=== PATIENT | female | born 1970 | race Caucasian/White ===

== ENCOUNTER 2017-03-24 14:11 | Emergency (ER) | payer BC ==
[2017-03-24 14:19] VITALS: BP 141/92
[2017-03-24] MEDS ORDERED: methylPREDNISolone 125 MG* 2 ML VIAL IM ONE (14:34)
[2017-03-24] MEDS ORDERED: Famotidine TAB* 20 MG PO ONE (14:57)
[2017-03-24] MEDS ORDERED: diPHENhydraMINE PO* 50 MG PO ONE (14:57)
--- NOTE | 2017-03-24 15:11 | UC ---
Skin Complaint HPI - HPI Summary HPI Summary: LEFT HAND STUNG BY BEE YESTERDAY. SWELLING CONTINUES. NO SHORTNESS OF BREATH. NO THROAT TIGHTNESS OR LIP SWELLING. NO JEWELERY COMPRIMISE. - History of Current Complaint Chief Complaint: UCSkin Time Seen by Provider: 03/24/17 14:24 Stated Complaint: BEE STING Hx Obtained From: Patient Hx Last Menstrual Period: 5 yrs ago Onset/Duration: Sudden Onset, Lasting Days, Still Present Skin Exposure Onset/Duration: Days Ago Onset Severity: Mild Current Severity: Mild Character: Swelling, Pruritus, Redness, Raised Aggravating: Touch Alleviating: OTC Meds, Antihistamines Associated Signs & Symptoms: Positive: Negative Related History: Insect Bite/Sting, Possible Reaction to: Insect - Allergy/Home Medications Allergies/Adverse Reactions: Allergies Allergy/AdvReac Type Severity Reaction Status Date / Time No Known Allergies Allergy Verified 03/24/17 14:19 Home Medications: Home Medications FLUoxetine CAP* [Prozac CAP*] 03/24/17 [History Confirmed 03/24/17] Review of Systems Constitutional: Negative Skin: Rash - LEFT HAND Eyes: Negative ENT: Negative Respiratory: Negative Cardiovascular: Negative Gastrointestinal: Negative Genitourinary: Negative Motor: Negative Neurovascular: Negative Musculoskeletal: Negative Neurological: Negative Psychological: Negative All Other Systems Reviewed And Are Negative: Yes PMH/Surg Hx/FS Hx/Imm Hx Previously Healthy: Yes - Surgical History Surgical History: Yes Surgery Procedure, Year, and Place: APPENDIX, GALLBLADDER, 2 C-SECTIONS, R knee arthroscopy and cartilage shave - Family History Known Family History: Positive: Cardiac Disease, Diabetes, Renal Disease, Other - arthritis Negative: Blood Disorder - Social History Occupation: Employed Full-time Lives: With Family Alcohol Use: Rare Alcohol Amount: 1 WINE A FEW TIMES A YEAR Substance Use Type: None Smoking Status (MU): Never Smoked Tobacco Have You Smoked in the Last Year: No - Immunization History Most Recent Tetanus Shot: less then 5 yrs Physical Exam Triage Information Reviewed: Yes Appearance: Well-Appearing, No Pain Distress, Well-Nourished Vital Signs: Initial Vital Signs Temp 99.3 F 03/24/17 14:15 Pulse 87 03/24/17 14:15 Resp 12 03/24/17 14:15 BP 141/92 03/24/17 14:15 Pulse Ox 97 03/24/17 14:15 Vital Signs Reviewed: Yes Eye Exam: Normal ENT Exam: Normal ENT: Positive: Normal ENT inspection, Hearing grossly normal, TMs normal Dental Exam: Normal Neck exam: Normal Neck: Positive: Supple, Nontender Respiratory Exam: Normal Respiratory: Positive: Chest non-tender, Lungs clear, Normal breath sounds, No respiratory distress, No accessory muscle use Cardiovascular Exam: Normal Cardiovascular: Positive: RRR, No Murmur, Pulses Normal Abdominal Exam: Normal Musculoskeletal Exam: Normal Musculoskeletal: Positive: Strength Intact, ROM Intact Neurological Exam: Normal Psychological Exam: Normal Skin Exam: Normal Course/Dx - Differential Diagnoses - Skin Complaint Differential Diagnoses: Allergic Reaction, Anaphylaxis, Angioedema, Cellulitis, Local Allergic Reaction, MRSA, Tinea, Varicella Zoster - Diagnoses Provider Diagnoses: LEFT HAND BEE STING Discharge - Discharge Plan Condition: Stable Disposition: HOME Patient Education Materials: Insect Bite or Sting (ED) Referrals: Harjeet Gupta MD [Medical Doctor] - Additional Instructions: BENADRYL 50mg PO TWO TIMES DAILY FOR FIVE DAYS. PEPCID 40 mg PO TWO TIMES DAILY FOR FIVE DAYS.
== END 2017-03-24 15:05 | disposition home or self-care (01) ==
LOC: UCEAST 14:11
DX: T63.441A Toxic effect of venom of bees, accidental (unintentional), initial encounter (principal); Y92.9 Unspecified place or not applicable
CPT/HCPCS: 96372; 99212; A9270-GY; G0463; J2930

== ENCOUNTER 2017-09-18 10:21 | Emergency (ER) | payer BC ==
--- NOTE | 2017-09-18 11:40 | RAD ---
INDICATION: Sudden onset LEFT elbow pain without proceeding injury. COMPARISON: No relevant prior exams available on the [facility] for comparison. TECHNIQUE: AP, lateral, and oblique views LEFT elbow. REPORT: Normal articular alignment. Negative for joint effusion or fracture. Large enthesophyte at the sublime tubercle of the ulna corresponding with the insertion of the anterior band of the ulnar collateral ligament favoring chronic ligament pathology or sequela of prior injury. Minimal humeral ulnar joint osteophytosis without significant joint space narrowing. Unremarkable soft tissue contours. IMPRESSION: 1. Large enthesophyte at the sublime tubercle of the ulna corresponding with the insertion of the anterior band of the ulnar collateral ligament favoring chronic ligament pathology or sequela of prior injury. 2. Mild osteoarthritis.
[2017-09-18 12:24] VITALS: BP 126/83
--- NOTE | 2017-09-19 11:39 | ED ---
Kel Shin Jennifer, scribed for Levi Ford MD on 09/18/17 at 1043 . Upper Extremity Pain - HPI Summary HPI Summary: The patient is a 46 year old female who presents with elbow pain in the left arm that began this morning at 07:10. The pain radiates from the elbow down the arm, and there is tingling in the left five fingers. It is described as a pulsating pain, but when she moves it a certain way, it becomes an excruciating pain. She denies any injury to her arm and states that the pain spontaneously occurred as she was getting ready. The patient denies weakness and neck pain. - History of Current Complaint Chief Complaint: EDExtremityUpper Stated Complaint: ELBOW PAIN, LEFT Hx Obtained From: Patient Hx Last Menstrual Period: 5 yrs ago Onset/Duration: Started Hours Ago - This morning at 07:10, Still Present Timing: Constant Severity Initially: Mild Severity Currently: Mild Pain Location: Elbow Character: Throbbing Aggravating Factor(s): Nothing Alleviating Factor(s): Nothing Associated Signs & Symptoms: Positive: Numbness/Tingling - left fingers, Other. Negative: Weakness, Neck Pain - Allergies/Home Medications Allergies/Adverse Reactions: Allergies Allergy/AdvReac Type Severity Reaction Status Date / Time No Known Allergies Allergy Verified 03/24/17 14:19 PMH/Surg Hx/FS Hx/Imm Hx Endocrine/Hematology History: Reports: Hx Diabetes - GESTATIONAL DM WITH PREGNANCIES Denies: Hx Thyroid Disease Cardiovascular History: Reports: Hx Hypertension - AFTER CHILDBIRTH, FOR 3 MONTHS, NONE SINCE - PATIENT STATES NORMAL Denies: Hx Pacemaker/ICD Respiratory History: Reports: Other Respiratory Problems/Disorders - RECEIVED ALLERGY INJECTIONS IN THE PAST Denies: Hx Asthma, Hx Chronic Obstructive Pulmonary Disease (COPD) GI History: Reports: Hx Gastroesophageal Reflux Disease - HX OF ACID REFLUX - NONE PRESENTLY, Hx Irritable Bowel, Hx Jaundice Denies: Hx Ulcer History: Reports: Other Problems/Disorders - HX OF UTI - NONE NOW Musculoskeletal History: Reports: Hx Arthritis - BILATERAL KNEES Sensory History: Reports: Hx Contacts or Glasses - GLASSES Denies: Hx Hearing Aid Opthamlomology History: Reports: Hx Contacts or Glasses - GLASSES Neurological History: Reports: Hx Migraine - HX OF IN THE PAST, NONE RECENTLY Psychiatric History: Reports: Hx Depression - ON MED Denies: Hx Panic Disorder - Surgical History Surgery Procedure, Year, and Place: APPENDIX, GALLBLADDER, 2 C-SECTIONS, R knee arthroscopy and cartilage shave Hx Anesthesia Reactions: No Infectious Disease History: No Infectious Disease History: Denies: Hx Clostridium Difficile, Hx Hepatitis, Hx Human Immunodeficiency Virus (HIV), Hx of Known/Suspected MRSA, Hx Shingles, Hx Tuberculosis, History Other Infectious Disease, Traveled Outside the [place] in Last 30 Days - Family History Known Family History: Positive: Cardiac Disease, Diabetes, Renal Disease, Other - arthritis Negative: Blood Disorder - Social History Alcohol Use: Rare Alcohol Amount: 1 WINE A FEW TIMES A YEAR Substance Use Type: Reports: None Smoking Status (MU): Never Smoked Tobacco Have You Smoked in the Last Year: No Review of Systems Positive: Myalgia - Elbow pain Neurological: Negative - Neck pain, Other Positive: Numbness - Tingling of left fingers. Negative: Weakness All Other Systems Reviewed And Are Negative: Yes Physical Exam - Summary Physical Exam Summary: Appearance: Well-appearing, Well-nourished Skin: Warm, Dry. Eczema on bilateral hands. Eyes: Normal, PERRL, EOMI, sclera anicteric ENT: Normal Neck: Supple, nontender Respiratory: Clear to auscultation Cardiovascular: S1, S2, no murmur, no rub, no gallop Abdomen: Soft, nontender, no organomegaly Bowel sounds: Present Musculoskeletal: Normal, Strength/ROM Intact, no edema, pulses symmetrical. Weakness of thumb abductors on left side. Tender over medial epicondyle on the left side. Extremities: Drew test showed presence of ulnar and radial artery blood flow. Neurological: Normal, A&Ox3, cranial nerves II-XII WNL, follows commands, gait not tested, sensation intact to pin and light touch. Deep tendon reflexes normal. Sensation in ulnar, median, and radial hand equal. No neck pain with motion. Psychiatric: affect normal, behavior appropriate, dressed appropriately, judgment intact Triage Information Reviewed: Yes Vital Signs On Initial Exam: Initial Vitals Temp Pulse Resp BP Pulse Ox 99.2 F 85 17 138/79 96 09/18/17 10:28 09/18/17 10:28 09/18/17 10:28 09/18/17 10:28 09/18/17 10:28 Vital Signs Reviewed: Yes Diagnostics - Vital Signs Vital Signs Temp Pulse Resp BP Pulse Ox 09/18/17 10:28 99.2 F 85 17 138/79 96 - Laboratory Lab Statement: Any lab studies that have been ordered have been reviewed, and results considered in the medical decision making process. - Radiology Elbow XR Xray Interpretation: Positive (See Comments) - 1. Large enthesophyte at the sublime tubercle of the ulna corresponding with the insertion of the anterior band of the ulnar collateral ligament favoring chronic ligament pathology or sequela of prior injury. 2. Mild osteoarthritis. Dr. Ford has reviewed this report. Radiology Interpretation Completed By: Radiologist Course/Dx - Course Assessment/Plan: Elbow X-ray showed 1. Large enthesophyte at the sublime tubercle of the ulna corresponding with the insertion of the anterior band of the ulnar collateral ligament favoring chronic ligament pathology or sequela of prior injury. 2. Mild osteoarthritis. The patient is diagnosed with ulnar tendinitis with ulnar neuropathy. The patient is instructed to follow up with orthopedics. - Diagnoses Provider Diagnoses: ulnar tendinitis with ulnar neuropathy Discharge - Discharge Plan Condition: Stable Disposition: HOME Referrals: Marlon Francis MD [Medical Doctor] - 3 Days Additional Instructions: Follow up with Dr. Francis, orthopedics, in three days. RETURN TO THE EMERGENCY DEPARTMENT FOR CHANGING OR WORSENING SYMPTOMS. The documentation as recorded by the Kel epps Jennifer accurately reflects the service I personally performed and the decisions made by , Levi Ford MD.
== END 2017-09-18 12:23 | disposition home or self-care (01) ==
LOC: ED 10:21
DX: J06.9 Acute upper respiratory infection, unspecified (principal)
CPT/HCPCS: 99282

== ENCOUNTER 2018-05-25 17:17 | Emergency (ER) | payer BC ==
[2018-05-25] MEDS ORDERED: Ibuprofen TAB* 600 MG PO ONE (19:04)
--- NOTE | 2018-05-25 19:07 | UC ---
Throat Pain/Nasal Danis HPI - HPI Summary HPI Summary: 47-year-old woman comes in with a chief complaint of sore throat fever bodyaches. Her symptoms came on suddenly 3 days ago. Initially is quite as bad sore throat. Been having chills cough and wheezing. She also has rhinorrhea. She's not smoker. Ibuprofen helped some with the pain. - History of Current Complaint Chief Complaint: UCRespiratory Stated Complaint: URI Time Seen by Provider: 05/25/18 18:57 Hx Last Menstrual Period: has mirena Pain Intensity: 4 - Allergies/Home Medications Allergies/Adverse Reactions: Allergies Allergy/AdvReac Type Severity Reaction Status Date / Time No Known Allergies Allergy Verified 05/25/18 17:35 PMH/Surg Hx/FS Hx/Imm Hx Respiratory History: Asthma - Surgical History Surgical History: Yes Surgery Procedure, Year, and Place: APPENDIX, GALLBLADDER, 2 C-SECTIONS, L t AND Rt knee arthroscopy and cartilage shave - Family History Known Family History: Positive: Cardiac Disease, Diabetes, Renal Disease, Other - arthritis Negative: Blood Disorder - Social History Alcohol Use: Rare Alcohol Amount: 1 WINE A FEW TIMES A YEAR Substance Use Type: None Smoking Status (MU): Never Smoked Tobacco Have You Smoked in the Last Year: No - Immunization History Most Recent Tetanus Shot: less then 5 yrs Review of Systems Constitutional: Fever, Chills Skin: Negative Eyes: Negative ENT: Sore Throat, Nasal Discharge, Sinus Congestion Respiratory: Cough Cardiovascular: Negative Gastrointestinal: Negative Motor: Negative Neurovascular: Negative Musculoskeletal: Negative Neurological: Negative Psychological: Negative Is Patient Immunocompromised?: No All Other Systems Reviewed And Are Negative: Yes Physical Exam Triage Information Reviewed: Yes Appearance: No Pain Distress, Well-Nourished, Ill-Appearing - MILD Vital Signs: Initial Vital Signs Temp 101.5 F 05/25/18 17:31 Pulse 95 05/25/18 17:31 Resp 18 05/25/18 17:31 BP 147/92 05/25/18 17:31 Pulse Ox 99 05/25/18 17:31 Vital Signs Reviewed: Yes Eye Exam: Normal Eyes: Positive: Conjunctiva Clear ENT: Positive: Pharyngeal erythema, Nasal congestion, Nasal drainage, TMs normal Neck exam: Normal Neck: Positive: Supple Respiratory Exam: Normal Respiratory: Positive: Lungs clear, Normal breath sounds, No respiratory distress Cardiovascular: Positive: RRR Musculoskeletal Exam: Normal Musculoskeletal: Positive: Strength Intact, ROM Intact Neurological Exam: Normal Neurological: Positive: Alert, Muscle Tone Normal Psychological Exam: Normal Psychological: Positive: Age Appropriate Behavior Skin Exam: Normal Throat Pain/Nasal Course/Dx - Course Course Of Treatment: DISCUSSED VIRAL VERSES BACTERIAL INFECTION AND THE ROLE OF ANTIBIOTICS. THE PATIENT WISHES TO BE ON ANTIBIOTICS AT THIS TIME. - Differential Dx/Diagnosis Provider Diagnoses: BRONCHITIS. ASTHMA Discharge - Sign-Out/Discharge Documenting (check all that apply): Patient Departure All imaging exams completed and their final reports reviewed: No Studies - Discharge Plan Condition: Stable Disposition: HOME Prescriptions: Albuterol HFA INHALER* [Ventolin HFA Inhaler*] 2 puff INH Q4H PRN #1 mdi PRN Reason: Wheezing Azithromyxin ALIA (NF) [Z-Alia (Zithromax) 250 mg tabs #6] 2 tab PO .TODAY, THEN 1 DAILY #6 tab predniSONE TAB* [Deltasone 20 MG TAB*] 40 mg PO DAILY #10 tab Patient Education Materials: Acute Bronchitis (ED), Asthma (ED) Forms: *Work Release Referrals: Bettina Lee NP [Primary Care Provider] - Additional Instructions: FOLLOW UP WITH YOUR DOCTOR IF NOT COMPLETELY IMPROVED. GET RECHECKED FOR ANY WORSENING OF YOUR CONDITION OR QUESTIONS OR CONCERNS. - Billing Disposition and Condition Condition: STABLE Disposition: Home
[2018-05-25 19:54] VITALS: BP 138/86
== END 2018-05-25 19:54 | disposition home or self-care (01) ==
LOC: UCEAST 17:17
DX: J45.909 Unspecified asthma, uncomplicated (principal)
CPT/HCPCS: 87651; 99212; A9270-GY; G0463

== ENCOUNTER 2024-02-17 09:45 | Observation (INO) ==
[~2024-02-17 09:45] MED LIST: Naloxone 0.4 mg VIAL 0.4 mg/ml 1 ml VIAL IV PRN; Prochlorperazine 5 mg/ml 2 ml VIAL (10 mg) IV PRN
[2024-02-17 10:51] LABS: Rapid COVID-19 Molecular Undetected (Undetected)
[2024-02-17] MEDS ORDERED: Tranexamic Acid 1 GM/100ML BAG 2,000 MG/200 ML BAG IV ONE (10:57)
[2024-02-17] MEDS ORDERED: ceFAZolin 2 GM in NS PREMIX 2 GM/100 ML BAG IVPB ONE (10:58)
[2024-02-17] MEDS: Lactated Ringers 1000 ml BAG 1,000 ML IV SCH ×2 (11:18→20:15)
[2024-02-17] MEDS: Buffered Lidocaine 1% SYRIN 1 ml INTRADERM ONE (11:18)
[2024-02-17] MEDS ORDERED: Midazolam 2 mg/2 ml VIAL 1 mg/ml 2 ml VIAL (2 mg) ONE ×2 (12:22→12:50)
[2024-02-17] MEDS ORDERED: ROPIVACAINE 5 MG/ML 30 ML BTL (0.5%) ONE (12:22)
[2024-02-17] MEDS ORDERED: Propofol 10 MG/ML 20 ML BTL ONE ×2 (14:32→15:24)
[2024-02-17] MEDS ORDERED: Ondansetron ODT 4 mg TAB 4 MG TAB PO PRN (16:14)
[2024-02-17] MEDS ORDERED: Calcium Carb (TUMS) 500 mg CHEW TAB PO PRN (16:14)
[2024-02-17] MEDS ORDERED: Ondansetron 4 mg VIAL 2 MG/ML 2 ml VIAL IV PRN (16:14)
[2024-02-17] MEDS ORDERED: Lactulose 30 ml UDC PO PRN (16:14)
[2024-02-17] MEDS ORDERED: Magnesium Hydroxide LIQ 30 ML UDC PO PRN (16:14)
[2024-02-17] MEDS ORDERED: fentaNYL 100 mcg/2 ml 50 MCG/ML VIAL ONE ×3 (16:14→17:24)
[2024-02-17] MEDS: fentaNYL 100 mcg/2 ml 50 MCG/ML VIAL IV PRN (16:15)
[2024-02-17] MEDS ORDERED: HYDROmorphone 1 MG/1 ML SYRINGE ONE (17:55)
[2024-02-17] MEDS: HYDROmorphone 0.5 MG/0.5 ML SYRINGE IV PRN (17:56)
[2024-02-17] MEDS ORDERED: Acetaminophen IV 1 GM/100ML 1,000 MG/100 ML BAG IV ONE (18:28)
[2024-02-17] MEDS ORDERED: Ondansetron 4 mg VIAL 2 MG/ML 2 ml VIAL ONE (19:15)
[2024-02-17] MEDS ORDERED: Dexamethasone IV 4 MG/ML VIAL 1 ml VIAL ONE (19:15)
[2024-02-17] MEDS: Ondansetron 4 mg VIAL 2 MG/ML 2 ml VIAL IV ONE (19:17)
[2024-02-17] MEDS: Dexamethasone IV 4 MG/ML VIAL 1 ml VIAL IV SLOW PU ONE (19:17)
[2024-02-17] MEDS: Magnesium Hydroxide LIQ 30 ML UDC PO SCH (20:51)
[2024-02-17] MEDS ORDERED: ceFAZolin 2 GM in NS PREMIX 2 GM/100 ML BAG IVPB SCH (22:00)
[2024-02-17] MEDS: Acetaminophen IV 1 GM/100ML 1,000 MG/100 ML BAG IV ONE (22:41)
[2024-02-17] MEDS: ceFAZolin 2 GM PREMIX 2 GM/50 ML BAG IV SCH (22:44)
[2024-02-18 06:12] LABS: Hematocrit 36.5 % (35-45); Hemoglobin 12.8 g/dL (11.5-14.3); Mean Platelet Volume 8.2 fL (7.5-11.2); Platelet Count 185 10^3/uL (150-450)
[2024-02-18 07:07] LABS: Calcium 8.8 mg/dL (8.6-10.3); Creatinine, Serum 0.82 mg/dL (0.51-0.95); Potassium 4.4 mmol/L (3.5-5.0); eGFR CKD-EPI 86.5 (>60)
[2024-02-18] MEDS: Vitamin THERAPEUTIC TAB PO SCH (08:02)
[2024-02-18] MEDS: Morphine 2 MG/ML SYRINGE IV PRN (19:32)
[2024-02-19 06:11] LABS: Hemoglobin 11.6 g/dL (11.5-14.3); Mean Platelet Volume 8.5 fL (7.5-11.2); Platelet Count 166 10^3/uL (150-450)
[2024-02-19 09:56] VITALS: BP 145/86
== END 2024-02-19 12:55 | disposition home or self-care (01) ==
LOC: AA 09:45 → INTOOBSV 09:45 → SSU 16:15
PROVIDERS: ADMIT Orthopaedic Surgery Adult Reconstructive Orthopaedic Surgery; ATTEND Orthopaedic Surgery Adult Reconstructive Orthopaedic Surgery